=== PATIENT | female | born 1940 | race Hispanic/Latino ===

== ENCOUNTER → 2018-04-30 | Outpatient (CLI) | payer OTHER ==
[~2018-04-30] MED LIST: ALBU6.7H PUFF; AMIO200T5 PO; BENZ-51 PO; ERGO400C PO; LEVO100 PO; Losartan Potassium PO; METO50TA18 PO; RIVA20TA PO; Simethicone PO
== END | disposition home or self-care (01) ==
LOC: SHCH 15:25
PROVIDERS: ATTEND Internal Medicine Cardiovascular Disease
DX: I48.0 Paroxysmal atrial fibrillation (principal)
CPT/HCPCS: 93306

== ENCOUNTER 2020-01-20 16:56 | Inpatient (IN) | payer OTHER ==
[~2020-01-20] VITALS: Ht 165.1 cm; Wt 79.0 kg
[~2020-01-20 16:56] MED LIST changes: -ALBU6.7H PUFF; +ALBU6.7H9 PUFF
[2020-01-20] MEDS ORDERED: SODIUM CHLORIDE 0.9% 1000ML 1,000 ML IV ONE (17:05)
[2020-01-20 17:10] LABS: BASOPHILS % (AUTO) 0.2 % (0.0-5.0); HEMATOCRIT 40.1 % (36-48); LYMPHOCYTES % (AUTO) 3.3 % (21.0-51.0); MEAN CORPUSCULAR HEMOGLOBIN 31.9 pg (27.0-33.0); MEAN CORPUSCULAR HGB CONC 34.2 g/dL (32.0-36.0); MEAN CORPUSCULAR VOLUME 93.3 fL (79-99); MONOCYTES % (AUTO) 8.9 % (3.0-13.0); NEUTROPHILS % (AUTO) 87.1 % (40.0-77.0); PLATELET COUNT (AUTO) 150 K/uL (130-400); RED CELL DISTRIBUTION WIDTH 13.4 % (11.0-15.5)
[2020-01-20 17:22] LABS: CREATININE 1.7 mg/dL (0.5-1.5); POTASSIUM 3.9 mmol/L (3.5-5.1)
[2020-01-20] MEDS ORDERED: ONDANSETRON HCL 4 MG/2 ML VIAL ONE (18:41)
[2020-01-20] MEDS ORDERED: ONDANSETRON HCL 4 MG/2 ML VIAL IV PRN (19:15)
[2020-01-20] MEDS ORDERED: ACETAMINOPHEN 325 MG TAB PO PRN (19:15)
[2020-01-20] MEDS ORDERED: ALBUTEROL SULFATE 0.083% 2.5 MG/3 ML INH IH PRN (19:45)
[2020-01-20] MEDS ORDERED: ACETAMINOPHEN 325 MG TAB ONE (20:03)
[2020-01-20 20:30] LABS: APPEARANCE,URINE Cloudy (CLEAR); BILIRUBIN,URINE Negative (NEGATIVE); COLOR,URINE Yellow (YELLOW); GLUCOSE, URINE (UA) Negative (NEGATIVE); KETONES,URINE Negative (NEGATIVE); LEUKOCYTE ESTERASE ,URINE Moderate (NEGATIVE); NITRATE,URINE Negative (NEGATIVE); OCCULT BLOOD,URINE Large (NEGATIVE); PROTEIN,URINE POS 1+ mg/dL (NEGATIVE)
[2020-01-20 20:42] LABS: AMPHET/METH SCREEN,URINE NEGATIVE (NEGATIVE); BARBITURATE SCREEN, URINE NEGATIVE (NEGATIVE); BENZODIAZEPINES SCREEN,URINE NEGATIVE (NEGATIVE); CANNABINOID SCREEN,URINE NEGATIVE (NEGATIVE); COCAINE SCREEN,URINE NEGATIVE (NEGATIVE); OPIATE SCREEN,URINE NEGATIVE (NEGATIVE); PHENCYCLIDINE SCREEN,URINE NEGATIVE (NEGATIVE)
[2020-01-20] MEDS ORDERED: FAMOTIDINE 20MG TAB 20 MG TAB ONE (20:52)
[2020-01-20] MEDS ORDERED: AMIODARONE HCL 200 MG TABLET PO ONE (20:52)
[2020-01-20] MEDS: AMIODARONE HCL 200 MG TABLET PO SCH (21:00)
[2020-01-20] MEDS: FAMOTIDINE 20MG TAB 20 MG TAB PO SCH (21:00)
[2020-01-20 21:09] LABS: WBC,URINE 26-50 /HPF (0-1)
[2020-01-20 21:10] LABS: BACTERIA,URINE Moderate /HPF (None Seen)
[2020-01-20 23:45] VITALS: BP 138/71
[2020-01-21] VITALS (7 sets, daily range): BP systolic 98–168; BP diastolic 59–75
[2020-01-21 05:09] LABS: HEMATOCRIT 39.2 % (36-48); MEAN CORPUSCULAR HGB CONC 33.9 g/dL (32.0-36.0); MEAN CORPUSCULAR VOLUME 94.2 fL (79-99); RED BLOOD CELL COUNT(AUTO) 4.16 MIL/uL (4.00-5.50); RED CELL DISTRIBUTION WIDTH 13.4 % (11.0-15.5); WHITE BLOOD COUNT (AUTO) 11.6 K/uL (4.8-10.8)
[2020-01-21 05:27] LABS: CREATININE 1.6 mg/dL (0.5-1.5); POTASSIUM 4.1 mmol/L (3.5-5.1)
[2020-01-21] MEDS ORDERED: CLON0.1T PO (06:04)
[2020-01-21] MEDS ORDERED: OMEP40CA13 PO (06:04)
[2020-01-21] MEDS ORDERED: ALBU90AE2 IH (06:04)
[2020-01-21] MEDS ORDERED: AMLO2.5T4 PO (06:04)
[2020-01-21] MEDS ORDERED: LOSA50TA64 PO (06:04)
[2020-01-21] MEDS ORDERED: CARV25TA PO (06:04)
[2020-01-21] MEDS: LEVOTHYROXINE 100 MCG TABLET PO SCH ×2 (07:23→07:42)
[2020-01-21] MEDS ORDERED: METOPROLOL TARTRATE 50 MG TAB PO SCH (09:00)
[2020-01-21] MEDS: FAMOTIDINE 20MG TAB 20 MG TAB PO SCH (09:18)
[2020-01-21] MEDS: AMIODARONE HCL 200 MG TABLET PO SCH ×2 (09:18→20:11)
[2020-01-21] MEDS: RIVAROXABAN 20 MG TABLET PO SCH (09:18)
[2020-01-21] MEDS: LOSARTAN 50 MG TABLET PO SCH (09:18)
[2020-01-21] MEDS ORDERED: RENAL DOSE IV SCH (12:30)
[2020-01-21] MEDS ORDERED: PHARMACY COMMUNICATION MISC SCH (13:00)
[2020-01-21] MEDS: ZOSYN 3.375GM+NS 50ML 50 ML IV SCH (13:00)
[2020-01-21] MEDS ORDERED: ZOSYN 3.375GM+NS 50ML 50 ML IV SCH (13:00)
--- NOTE | 2020-01-21 16:29 | NUR ---
DC PLAN VISITED WITH PATIENT. PATIENT LIVES ALONE. INDEPENDENT ABLE TO PERFORM ADL'S. PATIENT HAS NO SERVICES. PATIENT HAS WALKER WITH WHEELS. WONDERING ABOUT PROVIDER SERVICES WILL GIVE INFO TO MIKA CARBALLO. Addendum: 01/21/20 at 1632 by SABRINA MIRANDA RN CM Amended: Links added.
[2020-01-21] MEDS: ACETAMINOPHEN 325 MG TAB PO PRN ×2 (18:13→20:12)
[2020-01-21] MEDS: BENZONATATE 100 MG CAPSULE PO PRN (20:11)
[2020-01-22 00:24] VITALS: BP 132/70
[2020-01-22] MEDS: ZOSYN 3.375GM+NS 50ML 50 ML IV SCH ×2 (00:39→13:11)
[2020-01-22 04:46] VITALS: BP 161/82
--- NOTE | 2020-01-22 05:42 | NUR ---
received report from am nurse, assumed care, shift assessment done, timed medication given see emar, pain medication given pre and post pain assessment done, 24 cc done, safety maintained, bed in lowest position, callbell in reached, will continue to monitor.
[2020-01-22] MEDS: FAMOTIDINE 20MG TAB 20 MG TAB PO SCH (08:20)
[2020-01-22] MEDS: RIVAROXABAN 20 MG TABLET PO SCH (08:20)
[2020-01-22] MEDS: LOSARTAN 50 MG TABLET PO SCH (08:20)
[2020-01-22] MEDS: LEVOTHYROXINE 100 MCG TABLET PO SCH (08:20)
[2020-01-22] MEDS: AMIODARONE HCL 200 MG TABLET PO SCH ×2 (08:21→20:15)
[2020-01-22 08:30] VITALS: BP 154/77
[2020-01-22 12:03] VITALS: BP 159/91
--- NOTE | 2020-01-22 14:19 | NUR ---
DC PLAN PER DR. CHASE SAID PATIENT UNSAFE TO GO HOME. PATIENT NEED MEDICATION ADJ, UNSTEADY GAIT WILL NEED PT. SPOKE TO FAMILY SEVERAL TIMES WELL PATIENT. THERE WAS SEVERAL CHANGES ON HOME VS FACILITY VS IRU. FINAL CONSENT GIVEN FOR DENISSE SALCIDO. INFO SENT PENDING INSURANCE AUTH. Addendum: 01/23/20 at 1423 by SABRINA MIRANDA RN CM Amended: Links added.
[2020-01-22] MEDS ORDERED: AMLODIPINE BESYLATE 5 MG TAB ONE (15:13)
[2020-01-22 17:41] VITALS: BP 150/79
--- NOTE | 2020-01-22 18:20 | NUR ---
Report given to Jersey HASSAN. Patient transferred to 4th floor VIA bed. VSS,NAD denies any pain
--- NOTE | 2020-01-22 18:41 | NUR ---
ARRIVED BY BED IN GOOD CONDITION, IV S/L IN PLACE, TELE MONITOR IN PLACE, A/OX4 WITH NO CURRENT C/O PAIN OR RESP DIFFICULTY/DISTRESS.
[2020-01-22 19:49] VITALS: BP 150/76
[2020-01-23] VITALS: BP 161/79
[2020-01-23] MEDS: ZOSYN 3.375GM+NS 50ML 50 ML IV SCH ×2 (00:40→13:36)
[2020-01-23 03:54] VITALS: BP 168/80
[2020-01-23 08:00] VITALS: BP 169/80
--- NOTE | 2020-01-23 09:00 | NUR ---
cm note call made to Cyndee wells and states no approval for snf yet, updated MD
[2020-01-23] MEDS: AMLODIPINE BESYLATE 5 MG TAB PO SCH (11:10)
[2020-01-23] MEDS: LOSARTAN 50 MG TABLET PO SCH (11:10)
[2020-01-23] MEDS: AMIODARONE HCL 200 MG TABLET PO SCH ×2 (11:10→22:53)
[2020-01-23] MEDS: RIVAROXABAN 20 MG TABLET PO SCH (11:11)
[2020-01-23] MEDS: FAMOTIDINE 20MG TAB 20 MG TAB PO SCH (11:11)
[2020-01-23 11:15] VITALS: BP 132/73
--- NOTE | 2020-01-23 13:08 | NUR ---
cm note call made to carly wells and states no approval for snf by insurance yet, still pending, call made to Brii BRYANT/SHEILA [phone] ext [phone] and spoke to rep , states they are reviewing the case for snf approval, but will make a determination and call me back with decision.
[2020-01-23] MEDS ORDERED: ACET1TAB25 PO (14:36)
--- NOTE | 2020-01-23 15:00 | NUR ---
cm note received call from nathan with [facility] pt is approved for snf at [facility], updated miguel primary nurse, and also notified dr tran, [facility] pending for cardiology to see and clear for dc.
[2020-01-23 15:59] VITALS: BP 144/74
[2020-01-23 20:00] VITALS: BP_SYST 130; BP_SYST 134; BP_SYST 83; BP_DIAS 45; BP_DIAS 70; BP_DIAS 75
[2020-01-23] MEDS: BENZONATATE 100 MG CAPSULE PO PRN (22:53)
[2020-01-23] MEDS ORDERED: SODIUM CHLORIDE 0.9% 1000ML 1,000 ML IV SCH (23:45)
[2020-01-24] VITALS: BP 149/76
[2020-01-24] MEDS: ZOSYN 3.375GM+NS 50ML 50 ML IV SCH ×2 (01:37→13:00)
[2020-01-24 04:00] VITALS: BP 168/79
[2020-01-24 05:08] LABS: BASOPHILS % (AUTO) 0.4 % (0.0-5.0); EOSINOPHILS % (AUTO) 0.9 % (0.0-8.0); HEMATOCRIT 37.3 % (36-48); LYMPHOCYTES % (AUTO) 10.7 % (21.0-51.0); MEAN CORPUSCULAR HEMOGLOBIN 31.5 pg (27.0-33.0); MEAN CORPUSCULAR HGB CONC 34.3 g/dL (32.0-36.0); MEAN CORPUSCULAR VOLUME 91.9 fL (79-99); MONOCYTES % (AUTO) 15.9 % (3.0-13.0); NEUTROPHILS % (AUTO) 71.1 % (40.0-77.0); PLATELET COUNT (AUTO) 135 K/uL (130-400); RED BLOOD CELL COUNT(AUTO) 4.06 MIL/uL (4.00-5.50); RED CELL DISTRIBUTION WIDTH 13.4 % (11.0-15.5)
[2020-01-24 05:28] LABS: CREATININE 1.4 mg/dL (0.5-1.5); MAGNESIUM 1.6 mg/dL (1.80-2.40); POTASSIUM 3.5 mmol/L (3.5-5.1)
[2020-01-24] MEDS: LEVOTHYROXINE 100 MCG TABLET PO SCH (06:18)
[2020-01-24 08:00] VITALS: BP 154/86
[2020-01-24] MEDS: RIVAROXABAN 20 MG TABLET PO SCH (09:52)
[2020-01-24] MEDS: FAMOTIDINE 20MG TAB 20 MG TAB PO SCH (09:52)
[2020-01-24] MEDS: AMLODIPINE BESYLATE 5 MG TAB PO SCH (09:52)
[2020-01-24] MEDS: AMIODARONE HCL 200 MG TABLET PO SCH (09:52)
[2020-01-24 12:08] VITALS: BP 162/83
--- NOTE | 2020-01-24 17:04 | NUR ---
Patient discharged to half-way facility via [facility] wheelchair/van transport. Report called in at [phone] to [phone] Ricco Lemon LVN where the pt would be going to the [address] [place] [address]. IV removed and pressure held for 4 mins; no bleeding noted. Tele-pack removed and returned to telemetry via PCP. No skin issues/wounds upon assessment. Pt able to move all extremities and advised to call for assistance when attempting to ambulate. Last bowel movement yesterday per patient. Bowel sounds active in all quadrants; flatus passed while assisting pt w/ bedpan. No signs of respiratory distress noted. All paperwork including new prescriptions,education, and visit summary included in packet sent w/ pt. This nurses name and extension provided for any additional info that may be needed. Addendum: 01/24/20 at 1805 by KAITLIN GALDAMEZ RN RN Ricco Lemon LVN informed via report that the patient had 2 blood pressure medications that were discontinued and was given the most recent blood pressure measurement.
== END 2020-01-24 17:15 | DRG 315 ==
LOC: EDH 16:56 → OBSVTOIN 19:04 → EDHIP 19:04 → 2DH 22:21 → 4DH 01-22 18:18
PROVIDERS: ADMIT Internal Medicine; ATTEND Internal Medicine
DX: I95.9 Hypotension, unspecified (principal); N39.0 Urinary tract infection, site not specified; N17.9 Acute kidney failure, unspecified; I48.20 Chronic atrial fibrillation, unspecified; R29.6 Repeated falls; K21.9 Gastro-esophageal reflux disease without esophagitis; J44.9 Chronic obstructive pulmonary disease, unspecified; E78.5 Hyperlipidemia, unspecified; I48.0 Paroxysmal atrial fibrillation; I11.9 Hypertensive heart disease without heart failure; Z20.828 Contact with and (suspected) exposure to other viral communicable diseases; Z91.81 History of falling; Z79.01 Long term (current) use of anticoagulants; Z98.42 Cataract extraction status, left eye; Z88.8 Allergy status to other drugs, medicaments and biological substances
CPT/HCPCS: 36415; 70450; 70551; 71045; 72125; 73521; 80048; 80061; 80305; 81001; 82948; 83735; 84145; 84484; 85025; 85027; 87077; 87088; 87186; 87426; 87804; 93005; 97039; G0378; J2405; J2543; J7030; U0003

== ENCOUNTER 2020-04-30 09:14 | Inpatient (IN) | payer OTHER ==
[~2020-04-30] VITALS: Ht 160 cm; Wt 70.0 kg
[~2020-04-30 09:14] MED LIST changes: -ALBU6.7H9 PUFF; -AMIO200T5 PO; -BENZ-51 PO; -ERGO400C PO; +FAMO20TA8 PO; -Losartan Potassium PO; -METO50TA18 PO; -Simethicone PO
[2020-04-30 10:05] LABS: BASOPHILS % (AUTO) 0.6 % (0.0-5.0); EOSINOPHILS % (AUTO) 1.2 % (0.0-8.0); HEMATOCRIT 41.7 % (36-48); LYMPHOCYTES % (AUTO) 16.2 % (21.0-51.0); MEAN CORPUSCULAR HEMOGLOBIN 32.6 pg (27.0-33.0); MEAN CORPUSCULAR HGB CONC 33.3 g/dL (32.0-36.0); MEAN CORPUSCULAR VOLUME 97.7 fL (79-99); MONOCYTES % (AUTO) 7.1 % (3.0-13.0); NEUTROPHILS % (AUTO) 74.5 % (40.0-77.0); PLATELET COUNT (AUTO) 198 K/uL (130-400); RED BLOOD CELL COUNT(AUTO) 4.27 MIL/uL (4.00-5.50); RED CELL DISTRIBUTION WIDTH 13.7 % (11.0-15.5); WHITE BLOOD COUNT (AUTO) 5.1 K/uL (4.8-10.8)
[2020-04-30 10:18] LABS: CREATININE 1.4 mg/dL (0.5-1.5); POTASSIUM 3.5 mmol/L (3.5-5.1)
[2020-04-30 10:23] LABS: ALBUMIN 2.8 g/dL (3.5-5.0); BILIRUBIN,TOTAL 0.4 mg/dL (0.2-1.0)
[2020-04-30 10:29] LABS: B-TYPE NATRIURETIC PEPTIDE 103 pg/mL (0-100)
[2020-04-30] MEDS ORDERED: SODIUM CHLORIDE 0.9% 500ML 500 ML IV ONE (10:46)
[2020-04-30 11:28] LABS: APPEARANCE,URINE SL CLOUDY (CLEAR); BILIRUBIN,URINE NEGATIVE (NEGATIVE); COLOR,URINE YELLOW (YELLOW); GLUCOSE, URINE (UA) NEGATIVE (NEGATIVE); KETONES,URINE 5 mg/dL (NEGATIVE); LEUKOCYTE ESTERASE ,URINE MODERATE (NEGATIVE); NITRATE,URINE POSITIVE (NEGATIVE); OCCULT BLOOD,URINE NEGATIVE (NEGATIVE); PH,URINE 8.5 (5.0-8.0); PROTEIN,URINE TRACE mg/dL (NEGATIVE)
[2020-04-30 11:53] LABS: BACTERIA,URINE Many /HPF (None Seen)
[2020-04-30 11:54] LABS: RBC,URINE 0-1 /HPF (0-1); TRIPLE PHOSPHATE CRYSTAL,UR Few /LPF (None Seen)
[2020-04-30] MEDS ORDERED: SODIUM CHLORIDE 0.9% 1000ML 1,000 ML IV ONE (15:25)
[2020-04-30 16:45] VITALS: BP 162/86
[2020-04-30 19:25] VITALS: BP 165/91
[2020-04-30] MEDS ORDERED: PHARMACY COMMUNICATION MISC SCH (21:30)
[2020-04-30] MEDS: PINDOLOL 5 MG TAB PO SCH (22:06)
[2020-04-30] MEDS: SODIUM CHLORIDE 0.9% 1000ML 1,000 ML IV SCH (22:30)
[2020-04-30 23:18] VITALS: BP 163/88
[2020-05-01] VITALS (10 sets, daily range): BP systolic 112–169; BP diastolic 71–104
[2020-05-01] MEDS: LEVOTHYROXINE 100 MCG TABLET PO SCH (06:45)
[2020-05-01] MEDS: PINDOLOL 5 MG TAB PO SCH ×2 (09:57→20:38)
[2020-05-01] MEDS: RIVAROXABAN 20 MG TABLET PO SCH (09:57)
[2020-05-01] MEDS: FAMOTIDINE 20MG TAB 20 MG TAB PO SCH (09:57)
[2020-05-01] MEDS: SODIUM CHLORIDE 0.9% 1000ML 1,000 ML IV SCH ×2 (09:59→16:55)
[2020-05-02 04:00] VITALS: BP 142/77
[2020-05-02 05:32] LABS: BASOPHILS % (AUTO) 0.5 % (0.0-5.0); EOSINOPHILS % (AUTO) 1.5 % (0.0-8.0); HEMATOCRIT 40.2 % (36-48); LYMPHOCYTES % (AUTO) 17.8 % (21.0-51.0); MEAN CORPUSCULAR HEMOGLOBIN 31.9 pg (27.0-33.0); MEAN CORPUSCULAR HGB CONC 33.3 g/dL (32.0-36.0); MEAN CORPUSCULAR VOLUME 95.7 fL (79-99); MONOCYTES % (AUTO) 8.6 % (3.0-13.0); NEUTROPHILS % (AUTO) 71.1 % (40.0-77.0); PLATELET COUNT (AUTO) 221 K/uL (130-400); RED CELL DISTRIBUTION WIDTH 13.3 % (11.0-15.5); WHITE BLOOD COUNT (AUTO) 5.8 K/uL (4.8-10.8)
[2020-05-02 05:42] LABS: CREATININE 1.2 mg/dL (0.5-1.5); POTASSIUM 3.5 mmol/L (3.5-5.1)
[2020-05-02] MEDS: LEVOTHYROXINE 100 MCG TABLET PO SCH (05:57)
[2020-05-02 07:50] VITALS: BP 138/76
[2020-05-02] MEDS: RIVAROXABAN 20 MG TABLET PO SCH (08:27)
[2020-05-02] MEDS: FAMOTIDINE 20MG TAB 20 MG TAB PO SCH (08:27)
[2020-05-02] MEDS: PINDOLOL 5 MG TAB PO SCH (09:00)
[2020-05-02 11:06] VITALS: BP 137/74
[2020-05-02 11:07] VITALS: BP_SYST 103; BP_SYST 116; BP_DIAS 60; BP_DIAS 73
[2020-05-02 15:49] VITALS: BP_SYST 122; BP_SYST 130; BP_SYST 132; BP_DIAS 71; BP_DIAS 73; BP_DIAS 75
[2020-05-02 20:47] VITALS: BP_SYST 132; BP_SYST 133; BP_DIAS 72; BP_DIAS 81
[2020-05-03] VITALS (9 sets, daily range): BP systolic 89–157; BP diastolic 60–97
[2020-05-03] MEDS: PINDOLOL 5 MG TAB PO SCH ×3 (03:01→20:02)
[2020-05-03] MEDS: LEVOTHYROXINE 100 MCG TABLET PO SCH (06:44)
[2020-05-03] MEDS: RIVAROXABAN 20 MG TABLET PO SCH (10:22)
[2020-05-03] MEDS: MEROPENEM 1 GM VIAL IVP SCH ×2 (10:22→18:21)
[2020-05-03] MEDS: FAMOTIDINE 20MG TAB 20 MG TAB PO SCH (10:22)
[2020-05-03 10:25] LABS: BASOPHILS % (AUTO) 0.8 % (0.0-5.0); EOSINOPHILS % (AUTO) 1.2 % (0.0-8.0); HEMATOCRIT 36.3 % (36-48); LYMPHOCYTES % (AUTO) 17.4 % (21.0-51.0); MEAN CORPUSCULAR HGB CONC 34.2 g/dL (32.0-36.0); MEAN CORPUSCULAR VOLUME 96.5 fL (79-99); MONOCYTES % (AUTO) 8.9 % (3.0-13.0); NEUTROPHILS % (AUTO) 71.1 % (40.0-77.0); PLATELET COUNT (AUTO) 183 K/uL (130-400); RED BLOOD CELL COUNT(AUTO) 3.76 MIL/uL (4.00-5.50); RED CELL DISTRIBUTION WIDTH 13.7 % (11.0-15.5); WHITE BLOOD COUNT (AUTO) 5.1 K/uL (4.8-10.8)
[2020-05-03 10:34] LABS: CREATININE 1.5 mg/dL (0.5-1.5); POTASSIUM 3.8 mmol/L (3.5-5.1)
[2020-05-04] MEDS: MEROPENEM 1 GM VIAL IVP SCH ×3 (02:33→17:15)
[2020-05-04 05:00] VITALS: BP_SYST 100; BP_SYST 129; BP_DIAS 68; BP_DIAS 71
[2020-05-04 05:01] VITALS: BP 144/63
[2020-05-04] MEDS: LEVOTHYROXINE 100 MCG TABLET PO SCH (05:48)
[2020-05-04 07:47] VITALS: BP 119/75
[2020-05-04] MEDS: FAMOTIDINE 20MG TAB 20 MG TAB PO SCH (08:08)
[2020-05-04] MEDS: PINDOLOL 5 MG TAB PO SCH ×2 (08:08→21:41)
[2020-05-04] MEDS: RIVAROXABAN 20 MG TABLET PO SCH (08:08)
[2020-05-04 12:00] VITALS: BP 111/59
[2020-05-04 16:00] VITALS: BP 149/82
[2020-05-04 20:51] VITALS: BP 146/79
[2020-05-05] VITALS (7 sets, daily range): BP systolic 115–157; BP diastolic 54–94
[2020-05-05] MEDS: MEROPENEM 1 GM VIAL IVP SCH ×3 (03:08→17:21)
[2020-05-05] MEDS: LEVOTHYROXINE 100 MCG TABLET PO SCH (06:15)
[2020-05-05] MEDS: RIVAROXABAN 20 MG TABLET PO SCH (09:01)
[2020-05-05] MEDS: PINDOLOL 5 MG TAB PO SCH ×2 (09:01→20:41)
[2020-05-05] MEDS: FAMOTIDINE 20MG TAB 20 MG TAB PO SCH (09:01)
[2020-05-05] MEDS ORDERED: ACETAMINOPHEN 325 MG TAB PO PRN (11:30)
[2020-05-05] MEDS ORDERED: ONDANSETRON HCL 4 MG/2 ML VIAL IVP PRN (11:30)
[2020-05-06] MEDS: MEROPENEM 1 GM VIAL IVP SCH ×3 (01:17→17:33)
[2020-05-06 04:10] VITALS: BP 131/63
[2020-05-06 04:45] LABS: BASOPHILS % (AUTO) 0.7 % (0.0-5.0); EOSINOPHILS % (AUTO) 3.5 % (0.0-8.0); HEMATOCRIT 36.1 % (36-48); LYMPHOCYTES % (AUTO) 22.9 % (21.0-51.0); MEAN CORPUSCULAR HEMOGLOBIN 32.8 pg (27.0-33.0); MEAN CORPUSCULAR HGB CONC 33.5 g/dL (32.0-36.0); MEAN CORPUSCULAR VOLUME 97.8 fL (79-99); MONOCYTES % (AUTO) 13.1 % (3.0-13.0); NEUTROPHILS % (AUTO) 59.1 % (40.0-77.0); PLATELET COUNT (AUTO) 171 K/uL (130-400); RED BLOOD CELL COUNT(AUTO) 3.69 MIL/uL (4.00-5.50); RED CELL DISTRIBUTION WIDTH 13.4 % (11.0-15.5); WHITE BLOOD COUNT (AUTO) 5.4 K/uL (4.8-10.8)
[2020-05-06 05:05] LABS: ALBUMIN 2.3 g/dL (3.5-5.0); BILIRUBIN,TOTAL 0.3 mg/dL (0.2-1.0); CREATININE 1.6 mg/dL (0.5-1.5); POTASSIUM 3.6 mmol/L (3.5-5.1); TOTAL PROTEIN, SERUM 5.3 g/dL (6.0-8.3)
[2020-05-06] MEDS: LEVOTHYROXINE 100 MCG TABLET PO SCH (05:44)
[2020-05-06 07:00] VITALS: BP 119/70
[2020-05-06] MEDS: FAMOTIDINE 20MG TAB 20 MG TAB PO SCH (08:13)
[2020-05-06] MEDS: RIVAROXABAN 20 MG TABLET PO SCH (08:13)
[2020-05-06] MEDS: PINDOLOL 5 MG TAB PO SCH ×2 (08:14→19:49)
[2020-05-06 11:00] VITALS: BP 140/67
[2020-05-06 16:00] VITALS: BP 124/81
[2020-05-06 21:26] VITALS: BP 149/83
[2020-05-07 00:45] VITALS: BP 131/72
[2020-05-07] MEDS: MEROPENEM 1 GM VIAL IVP SCH ×2 (03:02→11:34)
[2020-05-07 04:19] VITALS: BP 133/74
[2020-05-07] MEDS: LEVOTHYROXINE 100 MCG TABLET PO SCH (06:43)
[2020-05-07 07:00] LABS: BASOPHILS % (AUTO) 0.5 % (0.0-5.0); EOSINOPHILS % (AUTO) 4.4 % (0.0-8.0); LYMPHOCYTES % (AUTO) 19.5 % (21.0-51.0); MEAN CORPUSCULAR HEMOGLOBIN 32.2 pg (27.0-33.0); MEAN CORPUSCULAR HGB CONC 33.2 g/dL (32.0-36.0); MEAN CORPUSCULAR VOLUME 96.9 fL (79-99); MONOCYTES % (AUTO) 11.6 % (3.0-13.0); NEUTROPHILS % (AUTO) 63.2 % (40.0-77.0); PLATELET COUNT (AUTO) 196 K/uL (130-400); RED BLOOD CELL COUNT(AUTO) 3.82 MIL/uL (4.00-5.50); RED CELL DISTRIBUTION WIDTH 13.2 % (11.0-15.5); WHITE BLOOD COUNT (AUTO) 6.6 K/uL (4.8-10.8)
[2020-05-07 07:29] LABS: ALBUMIN 2.3 g/dL (3.5-5.0); BILIRUBIN,TOTAL 0.3 mg/dL (0.2-1.0); CREATININE 1.4 mg/dL (0.5-1.5); POTASSIUM 4.1 mmol/L (3.5-5.1); TOTAL PROTEIN, SERUM 5.3 g/dL (6.0-8.3)
[2020-05-07 08:09] VITALS: BP 133/75
[2020-05-07] MEDS: PINDOLOL 5 MG TAB PO SCH (11:34)
[2020-05-07] MEDS: RIVAROXABAN 20 MG TABLET PO SCH (11:34)
[2020-05-07] MEDS: FAMOTIDINE 20MG TAB 20 MG TAB PO SCH (11:34)
[2020-05-07 12:18] VITALS: BP 130/83
== END 2020-05-07 17:45 | DRG 312 ==
LOC: EDH 09:14 → EDHIP 14:09 → UNDOADMOB 14:09 → OBSVTOIN 14:09 → INTOOBSV 14:09 → EDHIP 16:32 → 4DH 16:32
PROVIDERS: ADMIT Internal Medicine; ATTEND Internal Medicine
DX: I95.1 Orthostatic hypotension (principal); I50.43 Acute on chronic combined systolic (congestive) and diastolic (congestive) heart failure; N39.0 Urinary tract infection, site not specified; I48.0 Paroxysmal atrial fibrillation; G47.33 Obstructive sleep apnea (adult) (pediatric); K21.9 Gastro-esophageal reflux disease without esophagitis; E03.9 Hypothyroidism, unspecified; I11.0 Hypertensive heart disease with heart failure; I44.0 Atrioventricular block, first degree; B96.1 Klebsiella pneumoniae [K. pneumoniae] as the cause of diseases classified elsewhere; B96.4 Proteus (mirabilis) (morganii) as the cause of diseases classified elsewhere; E78.5 Hyperlipidemia, unspecified; Z79.01 Long term (current) use of anticoagulants; Z91.81 History of falling; Z91.19 Patient's noncompliance with other medical treatment and regimen; Z86.73 Personal history of transient ischemic attack (TIA), and cerebral infarction without residual deficits; Z88.8 Allergy status to other drugs, medicaments and biological substances; Z83.3 Family history of diabetes mellitus; Z80.9 Family history of malignant neoplasm, unspecified; Z82.49 Family history of ischemic heart disease and other diseases of the circulatory system
CPT/HCPCS: 36415; 70450; 71045; 80048; 80053; 81001; 82550; 82948; 83880; 84145; 84443; 84484; 85025; 87077; 87088; 87186; 93005; 93306; 93356; 93880; 97039; G0378; J2185; J2405; J7030; J7040

== ENCOUNTER 2020-07-31 19:13 | Inpatient (IN) | payer MEDICARE, OTHER ==
[~2020-07-31] VITALS: Ht 162.6 cm; Wt 69.8 kg
[2020-07-31] MEDS ORDERED: ZOSYN 3.375GM+NS 50ML 50 ML IV ONE (19:55)
[2020-07-31] MEDS ORDERED: ACETAMINOPHEN 500 MG TABLET ONE (19:55)
[2020-07-31] MEDS ORDERED: 0.9%NACL 1000ML 1,000 ML IV ONE (19:56)
[2020-07-31 20:16] LABS: APPEARANCE,URINE Clear (CLEAR); BILIRUBIN,URINE Negative (NEGATIVE); COLOR,URINE Yellow (YELLOW); GLUCOSE, URINE (UA) Negative (NEGATIVE); KETONES,URINE Negative (NEGATIVE); LEUKOCYTE ESTERASE ,URINE Large (NEGATIVE); NITRATE,URINE Negative (NEGATIVE); OCCULT BLOOD,URINE Nonhemolyzed Trace (NEGATIVE); PROTEIN,URINE Trace mg/dL (NEGATIVE)
[2020-07-31 20:19] LABS: BASOPHILS % (AUTO) 0.2 % (0.0-5.0); EOSINOPHILS % (AUTO) 0.2 % (0.0-8.0); HEMATOCRIT 36.2 % (36-48); LYMPHOCYTES % (AUTO) 3.2 % (21.0-51.0); MEAN CORPUSCULAR HEMOGLOBIN 32.6 pg (27.0-33.0); MEAN CORPUSCULAR HGB CONC 35.1 g/dL (32.0-36.0); MEAN CORPUSCULAR VOLUME 92.8 fL (79-99); MONOCYTES % (AUTO) 8.5 % (3.0-13.0); NEUTROPHILS % (AUTO) 87.6 % (40.0-77.0); PLATELET COUNT (AUTO) 180 K/uL (130-400); RED CELL DISTRIBUTION WIDTH 13.5 % (11.0-15.5); WHITE BLOOD COUNT (AUTO) 11.6 K/uL (4.8-10.8)
[2020-07-31 20:31] LABS: CARBON DIOXIDE 26 mmol/L (21-32); CHLORIDE 102 mmol/L (101-111); CREATININE 1.1 mg/dL (0.5-1.5); GLOMERULAR FILTR. RATE CALC 51 mL/min (>60); GLUCOSE,RANDOM 125 mg/dL (70-105); POTASSIUM 4.3 mmol/L (3.5-5.1); SODIUM SERUM 137 mmol/L (136-145); UREA NITROGEN, BLOOD 24 mg/dL (7-18)
[2020-07-31 20:35] LABS: INR 1.51 (0.85-1.15); PROTHROMBIN TIME 15.9 SEC (9.6-11.6)
[2020-07-31 20:37] LABS: PARTIAL THROMBOPLASTIN TIME 41.6 SEC (26.3-35.5)
[2020-07-31 20:40] LABS: BACTERIA,URINE Few /HPF (None Seen); MUCUS,URINE Rare LPF (None Seen); SQUAMOUS EPITHELIAL CELL,UR Rare /HPF (0-2)
[2020-07-31 20:42] LABS: ALANINE AMINOTRANSFERASE 26 U/L (12-78); ALBUMIN 2.8 g/dL (3.5-5.0); ASPARTATE AMINOTRANSFERASE 33 U/L (10-37); BILIRUBIN,TOTAL 0.6 mg/dL (0.2-1.0); CREATINE KINASE, TOTAL 42 U/L (21-232); MYOGLOBIN 53 ng/mL (10-92); TOTAL PROTEIN, SERUM 6.3 g/dL (6.0-8.3); TROPONIN I < 0.04 ng/mL (0.00-0.06)
[2020-07-31 20:53] LABS: B-TYPE NATRIURETIC PEPTIDE 285 pg/mL (0-100)
[2020-07-31] MEDS: LACTATED RINGERS 1000ML 1,000 ML IV SCH (22:00)
[2020-07-31] MEDS: CEFTRIAXONE 1G VIAL IVP SCH (22:00)
[2020-07-31] MEDS ORDERED: LACTULOSE 20 GM/30 ML UDCUP PO PRN (22:00)
[2020-07-31] MEDS ORDERED: ONDANSETRON 4MG INJ IV PRN (22:00)
[2020-07-31] MEDS ORDERED: ALBUTEROL 0.083% 2.5 MG/3 ML INH IH PRN (22:00)
[2020-07-31] MEDS ORDERED: DiphenhydrAMINE HCL 50 MG/ML VIAL IV PRN (22:00)
[2020-07-31] MEDS ORDERED: DOXYCYCLINE 100MG+NS 250ML IV SCH (22:00)
[2020-07-31] MEDS ORDERED: NITROGLYCERIN 0.4 MG SL TAB SL PRN (22:00)
[2020-07-31] MEDS ORDERED: ACETAMINOPHEN 325 MG TAB PO PRN ×2 (22:00)
[2020-07-31] MEDS ORDERED: GUAIFENESIN-DM 200/20 MG 10 ML PO PRN (22:00)
[2020-07-31] MEDS ORDERED: MAG/ALUM/SIMETH 30 ML UDCUP PO PRN (22:00)
[2020-07-31] MEDS ORDERED: DIPHENHYDRAMINE HCL 25 MG CAPSULE PO PRN (22:00)
[2020-07-31] MEDS: CARVEDILOL 3.125 MG TABLET PO SCH (23:00)
[2020-08-01] MEDS ORDERED: DOXYCYCLINE 100MG+NS 250ML 250 ML IV ONE (00:02)
[2020-08-01] MEDS ORDERED: LACTATED RINGERS 1000ML 1,000 ML IV ONE (00:03)
[2020-08-01] MEDS ORDERED: CARVEDILOL 3.125 MG TABLET PO ONE (00:03)
[2020-08-01] MEDS ORDERED: CEFTRIAXONE 1G VIAL ONE (00:03)
[2020-08-01 01:43] VITALS: BP 167/79
[2020-08-01 04:00] VITALS: BP 140/72
[2020-08-01 06:01] LABS: BASOPHILS % (AUTO) 0.3 % (0.0-5.0); EOSINOPHILS % (AUTO) 0.5 % (0.0-8.0); HEMATOCRIT 34.9 % (36-48); LYMPHOCYTES % (AUTO) 6.8 % (21.0-51.0); MEAN CORPUSCULAR HEMOGLOBIN 31.5 pg (27.0-33.0); MEAN CORPUSCULAR HGB CONC 33.5 g/dL (32.0-36.0); MEAN CORPUSCULAR VOLUME 94.1 fL (79-99); MONOCYTES % (AUTO) 9.2 % (3.0-13.0); NEUTROPHILS % (AUTO) 82.7 % (40.0-77.0); PLATELET COUNT (AUTO) 152 K/uL (130-400); RED BLOOD CELL COUNT(AUTO) 3.71 MIL/uL (4.00-5.50); RED CELL DISTRIBUTION WIDTH 13.4 % (11.0-15.5)
[2020-08-01 06:28] LABS: ALBUMIN 2.4 g/dL (3.5-5.0); BILIRUBIN,TOTAL 0.4 mg/dL (0.2-1.0); CREATININE 1.2 mg/dL (0.5-1.5); CRP QUANTITATIVE 125.4 mg/L (0.00-9.0); POTASSIUM 3.5 mmol/L (3.5-5.1); THYROID STIMULATING HORMONE 0.15 uIU/mL (0.36-3.74); TOTAL PROTEIN, SERUM 5.5 g/dL (6.0-8.3)
[2020-08-01 08:11] VITALS: BP 164/79
[2020-08-01] MEDS: LEVOTHYROXINE 100 MCG TABLET PO SCH (09:13)
[2020-08-01] MEDS: FAMOTIDINE 20MG VIAL IV SCH ×2 (09:13→20:30)
[2020-08-01] MEDS: RIVAROXABAN 20 MG TABLET PO SCH (09:14)
[2020-08-01] MEDS: CARVEDILOL 3.125 MG TABLET PO SCH ×2 (09:14→20:31)
[2020-08-01] MEDS: AMIODARONE 200 MG TABLET PO SCH ×2 (09:14→20:31)
[2020-08-01] MEDS: AMLODIPINE 5 MG TAB PO SCH (09:14)
[2020-08-01] MEDS: CEFTRIAXONE 1G VIAL IVP SCH ×2 (10:40→21:38)
[2020-08-01] MEDS: DOXYCYCLINE 100MG+NS 250ML 250 ML IV SCH ×2 (11:47→21:38)
[2020-08-01 12:00] VITALS: BP 134/68
[2020-08-01 16:10] VITALS: BP 151/74
[2020-08-01 20:00] VITALS: BP 172/83
[2020-08-02] VITALS (7 sets, daily range): BP systolic 134–179; BP diastolic 43–86
[2020-08-02 05:38] LABS: BASOPHILS % (AUTO) 0.6 % (0.0-5.0); EOSINOPHILS % (AUTO) 1.4 % (0.0-8.0); HEMATOCRIT 31.9 % (36-48); LYMPHOCYTES % (AUTO) 13.6 % (21.0-51.0); MEAN CORPUSCULAR HEMOGLOBIN 31.6 pg (27.0-33.0); MEAN CORPUSCULAR HGB CONC 34.2 g/dL (32.0-36.0); MEAN CORPUSCULAR VOLUME 92.5 fL (79-99); MONOCYTES % (AUTO) 12.7 % (3.0-13.0); PLATELET COUNT (AUTO) 152 K/uL (130-400); RED BLOOD CELL COUNT(AUTO) 3.45 MIL/uL (4.00-5.50); RED CELL DISTRIBUTION WIDTH 13.2 % (11.0-15.5); WHITE BLOOD COUNT (AUTO) 7.2 K/uL (4.8-10.8)
[2020-08-02 06:14] LABS: ALBUMIN 2.3 g/dL (3.5-5.0); BILIRUBIN,TOTAL 0.4 mg/dL (0.2-1.0); POTASSIUM 3.6 mmol/L (3.5-5.1); TOTAL PROTEIN, SERUM 5.5 g/dL (6.0-8.3)
[2020-08-02] MEDS: [UNRECOGNIZED DRUG - REMARK] MISC SCH (08:00)
[2020-08-02] MEDS: LEVOTHYROXINE 100 MCG TABLET PO SCH (08:30)
[2020-08-02] MEDS: FAMOTIDINE 20MG VIAL IV SCH ×2 (08:31→21:22)
[2020-08-02] MEDS: RIVAROXABAN 20 MG TABLET PO SCH (08:31)
[2020-08-02] MEDS: CARVEDILOL 3.125 MG TABLET PO SCH ×2 (08:32→21:22)
[2020-08-02] MEDS: AMLODIPINE 5 MG TAB PO SCH (08:32)
[2020-08-02] MEDS: AMIODARONE 200 MG TABLET PO SCH ×2 (08:33→21:22)
[2020-08-02] MEDS: LACTATED RINGERS 1000ML 1,000 ML IV SCH (08:41)
[2020-08-02] MEDS: DOXYCYCLINE 100MG+NS 250ML 250 ML IV SCH ×2 (10:08→21:22)
[2020-08-02] MEDS: CEFTRIAXONE 1G VIAL IVP SCH ×2 (10:08→21:21)
[2020-08-02] MEDS: LOSARTAN 50 MG TABLET PO SCH (13:36)
[2020-08-02 21:56] LABS: BASOPHILS % (AUTO) 0.5 % (0.0-5.0); EOSINOPHILS % (AUTO) 2.2 % (0.0-8.0); HEMATOCRIT 34.2 % (36-48); LYMPHOCYTES % (AUTO) 17.7 % (21.0-51.0); MEAN CORPUSCULAR HEMOGLOBIN 30.9 pg (27.0-33.0); MEAN CORPUSCULAR VOLUME 93.4 fL (79-99); MONOCYTES % (AUTO) 12.7 % (3.0-13.0); NEUTROPHILS % (AUTO) 66.2 % (40.0-77.0); PLATELET COUNT (AUTO) 151 K/uL (130-400); RED BLOOD CELL COUNT(AUTO) 3.66 MIL/uL (4.00-5.50); RED CELL DISTRIBUTION WIDTH 13.1 % (11.0-15.5)
[2020-08-03] VITALS (7 sets, daily range): BP systolic 118–184; BP diastolic 57–92
[2020-08-03] MEDS: [UNRECOGNIZED DRUG - REMARK] MISC SCH (03:26)
[2020-08-03 05:37] LABS: BASOPHILS % (AUTO) 0.5 % (0.0-5.0); EOSINOPHILS % (AUTO) 2.3 % (0.0-8.0); HEMATOCRIT 33.2 % (36-48); LYMPHOCYTES % (AUTO) 15.9 % (21.0-51.0); MEAN CORPUSCULAR HEMOGLOBIN 31.8 pg (27.0-33.0); MEAN CORPUSCULAR VOLUME 93.5 fL (79-99); MONOCYTES % (AUTO) 12.2 % (3.0-13.0); NEUTROPHILS % (AUTO) 68.8 % (40.0-77.0); PLATELET COUNT (AUTO) 170 K/uL (130-400); RED BLOOD CELL COUNT(AUTO) 3.55 MIL/uL (4.00-5.50); RED CELL DISTRIBUTION WIDTH 13.2 % (11.0-15.5)
[2020-08-03 05:57] LABS: ALBUMIN 2.2 g/dL (3.5-5.0); BILIRUBIN,TOTAL 0.4 mg/dL (0.2-1.0); POTASSIUM 3.6 mmol/L (3.5-5.1); TOTAL PROTEIN, SERUM 5.4 g/dL (6.0-8.3)
[2020-08-03] MEDS: LOSARTAN 50 MG TABLET PO SCH (08:19)
[2020-08-03] MEDS: LEVOTHYROXINE 100 MCG TABLET PO SCH (08:19)
[2020-08-03] MEDS: FAMOTIDINE 20MG VIAL IV SCH ×2 (08:19→20:47)
[2020-08-03] MEDS: AMLODIPINE 5 MG TAB PO SCH (08:19)
[2020-08-03] MEDS: AMIODARONE 200 MG TABLET PO SCH ×2 (08:20→20:47)
[2020-08-03] MEDS: RIVAROXABAN 20 MG TABLET PO SCH (08:25)
[2020-08-03] MEDS: CARVEDILOL 3.125 MG TABLET PO SCH ×2 (08:25→20:47)
[2020-08-03] MEDS: DOXYCYCLINE 100MG+NS 250ML 250 ML IV SCH ×2 (10:59→20:48)
[2020-08-03] MEDS: MEROPENEM 1 GM VIAL IVP SCH (12:01)
[2020-08-04] MEDS: MEROPENEM 1 GM VIAL IVP SCH ×3 (01:20→23:39)
[2020-08-04 03:45] VITALS: BP 164/71
[2020-08-04 05:23] LABS: BASOPHILS % (AUTO) 0.5 % (0.0-5.0); EOSINOPHILS % (AUTO) 2.5 % (0.0-8.0); HEMATOCRIT 33.4 % (36-48); LYMPHOCYTES % (AUTO) 17.5 % (21.0-51.0); MEAN CORPUSCULAR HEMOGLOBIN 31.4 pg (27.0-33.0); MEAN CORPUSCULAR HGB CONC 33.5 g/dL (32.0-36.0); MEAN CORPUSCULAR VOLUME 93.6 fL (79-99); MONOCYTES % (AUTO) 12.6 % (3.0-13.0); NEUTROPHILS % (AUTO) 66.1 % (40.0-77.0); PLATELET COUNT (AUTO) 193 K/uL (130-400); RED BLOOD CELL COUNT(AUTO) 3.57 MIL/uL (4.00-5.50); RED CELL DISTRIBUTION WIDTH 13.2 % (11.0-15.5); WHITE BLOOD COUNT (AUTO) 6.5 K/uL (4.8-10.8)
[2020-08-04 05:24] LABS: POTASSIUM 3.7 mmol/L (3.5-5.1)
[2020-08-04] MEDS: LEVOTHYROXINE 100 MCG TABLET PO SCH (06:11)
[2020-08-04 08:00] VITALS: BP 163/75
[2020-08-04] MEDS: CARVEDILOL 3.125 MG TABLET PO SCH ×2 (10:27→21:02)
[2020-08-04] MEDS: AMIODARONE 200 MG TABLET PO SCH ×2 (10:27→21:01)
[2020-08-04] MEDS: RIVAROXABAN 20 MG TABLET PO SCH (10:27)
[2020-08-04] MEDS: FAMOTIDINE 20MG VIAL IV SCH ×2 (10:28→21:02)
[2020-08-04] MEDS: AMLODIPINE 5 MG TAB PO SCH (10:28)
[2020-08-04] MEDS: DOXYCYCLINE 100MG+NS 250ML 250 ML IV SCH (10:28)
[2020-08-04] MEDS: LOSARTAN 50 MG TABLET PO SCH (10:28)
[2020-08-04 12:00] VITALS: BP 173/77
[2020-08-04 12:53] VITALS: BP 146/69
[2020-08-04 16:00] VITALS: BP 168/82
[2020-08-04 20:00] VITALS: BP 176/79
[2020-08-05] VITALS (7 sets, daily range): BP systolic 112–179; BP diastolic 63–87
[2020-08-05] MEDS: LEVOTHYROXINE 100 MCG TABLET PO SCH (06:42)
[2020-08-05] MEDS: AMLODIPINE 5 MG TAB PO SCH (10:02)
[2020-08-05] MEDS: AMIODARONE 200 MG TABLET PO SCH ×2 (10:02→21:32)
[2020-08-05] MEDS: RIVAROXABAN 20 MG TABLET PO SCH (10:02)
[2020-08-05] MEDS: CARVEDILOL 3.125 MG TABLET PO SCH ×2 (10:03→21:32)
[2020-08-05] MEDS: LOSARTAN 50 MG TABLET PO SCH (10:03)
[2020-08-05] MEDS: FAMOTIDINE 20MG VIAL IV SCH ×2 (10:04→21:32)
[2020-08-05] MEDS: MEROPENEM 1 GM VIAL IVP SCH ×2 (10:08→23:38)
[2020-08-05 10:32] LABS: INR 1.27 (0.85-1.15); PROTHROMBIN TIME 13.5 SEC (9.6-11.6)
[2020-08-05 10:34] LABS: PARTIAL THROMBOPLASTIN TIME 35.6 SEC (26.3-35.5)
[2020-08-06 03:00] VITALS: BP 136/66
[2020-08-06 05:15] LABS: BASOPHILS % (AUTO) 0.5 % (0.0-5.0); EOSINOPHILS % (AUTO) 1.5 % (0.0-8.0); HEMATOCRIT 36.3 % (36-48); LYMPHOCYTES % (AUTO) 20.9 % (21.0-51.0); MEAN CORPUSCULAR HEMOGLOBIN 30.9 pg (27.0-33.0); MEAN CORPUSCULAR HGB CONC 33.1 g/dL (32.0-36.0); MEAN CORPUSCULAR VOLUME 93.6 fL (79-99); MONOCYTES % (AUTO) 9.3 % (3.0-13.0); NEUTROPHILS % (AUTO) 67.4 % (40.0-77.0); PLATELET COUNT (AUTO) 237 K/uL (130-400); RED BLOOD CELL COUNT(AUTO) 3.88 MIL/uL (4.00-5.50); RED CELL DISTRIBUTION WIDTH 13.1 % (11.0-15.5); WHITE BLOOD COUNT (AUTO) 7.4 K/uL (4.8-10.8)
[2020-08-06 05:30] LABS: CREATININE 1.1 mg/dL (0.5-1.5); POTASSIUM 3.8 mmol/L (3.5-5.1)
[2020-08-06] MEDS: LEVOTHYROXINE 100 MCG TABLET PO SCH (07:58)
[2020-08-06 08:32] VITALS: BP 159/72
[2020-08-06] MEDS: AMIODARONE 200 MG TABLET PO SCH ×2 (11:03→22:38)
[2020-08-06] MEDS: AMLODIPINE 5 MG TAB PO SCH (11:03)
[2020-08-06] MEDS: LOSARTAN 50 MG TABLET PO SCH (11:03)
[2020-08-06] MEDS: CARVEDILOL 3.125 MG TABLET PO SCH ×2 (11:03→22:38)
[2020-08-06] MEDS: RIVAROXABAN 20 MG TABLET PO SCH (11:04)
[2020-08-06] MEDS: MEROPENEM 1 GM VIAL IVP SCH ×2 (11:04→22:38)
[2020-08-06] MEDS: FAMOTIDINE 20MG VIAL IV SCH ×2 (11:04→22:38)
[2020-08-06 12:04] VITALS: BP 165/75
[2020-08-06] MEDS ORDERED: ERTAPENEM SODIUM 1 GM in 0.9%NACL 50ML 50 ML IV ONE (14:30)
[2020-08-06] MEDS ORDERED: PHARMACY COMMUNICATION MISC SCH (15:00)
[2020-08-06 16:30] VITALS: BP 147/79
[2020-08-06 20:00] VITALS: BP 177/97
[2020-08-07] VITALS: BP 168/84
[2020-08-07 04:00] VITALS: BP 131/65
[2020-08-07 06:10] LABS: BASOPHILS % (AUTO) 0.5 % (0.0-5.0); EOSINOPHILS % (AUTO) 1.7 % (0.0-8.0); LYMPHOCYTES % (AUTO) 20.9 % (21.0-51.0); MEAN CORPUSCULAR HGB CONC 34.1 g/dL (32.0-36.0); MEAN CORPUSCULAR VOLUME 93.8 fL (79-99); MONOCYTES % (AUTO) 10.5 % (3.0-13.0); NEUTROPHILS % (AUTO) 65.6 % (40.0-77.0); PLATELET COUNT (AUTO) 191 K/uL (130-400); RED BLOOD CELL COUNT(AUTO) 3.41 MIL/uL (4.00-5.50); RED CELL DISTRIBUTION WIDTH 13.2 % (11.0-15.5); WHITE BLOOD COUNT (AUTO) 6.6 K/uL (4.8-10.8)
[2020-08-07 06:14] LABS: CREATININE 1.2 mg/dL (0.5-1.5); POTASSIUM 3.6 mmol/L (3.5-5.1)
[2020-08-07 07:48] VITALS: BP 151/71
[2020-08-07] MEDS: LEVOTHYROXINE 100 MCG TABLET PO SCH (08:32)
[2020-08-07] MEDS: AMIODARONE 200 MG TABLET PO SCH (08:50)
[2020-08-07] MEDS: AMLODIPINE 5 MG TAB PO SCH (08:50)
[2020-08-07] MEDS: CARVEDILOL 3.125 MG TABLET PO SCH (08:51)
[2020-08-07] MEDS: LOSARTAN 50 MG TABLET PO SCH (08:51)
[2020-08-07] MEDS: FAMOTIDINE 20MG VIAL IV SCH (08:52)
[2020-08-07] MEDS: RIVAROXABAN 20 MG TABLET PO SCH (08:52)
[2020-08-07 11:32] VITALS: BP 138/62
[2020-08-07] MEDS: MEROPENEM 1 GM VIAL IVP SCH (11:47)
== END 2020-08-07 14:30 | disposition home health service (06) | DRG 70 ==
LOC: EDH 19:13 → EDHIP 22:00 → 4CH 08-01 01:08
PROVIDERS: ADMIT Family Medicine; ATTEND Family Medicine
PROC: 05HY33Z Insertion of Infusion Device into Upper Vein, Percutaneous Approach (ICD-10-PCS; principal; 2020-07-31)
DX: G93.41 Metabolic encephalopathy (principal); J18.9 Pneumonia, unspecified organism; N39.0 Urinary tract infection, site not specified; Z16.24 Resistance to multiple antibiotics; J44.0 Chronic obstructive pulmonary disease with (acute) lower respiratory infection; I48.91 Unspecified atrial fibrillation; B96.20 Unspecified Escherichia coli [E. coli] as the cause of diseases classified elsewhere; I10 Essential (primary) hypertension; E03.9 Hypothyroidism, unspecified; B96.89 Other specified bacterial agents as the cause of diseases classified elsewhere; Z20.822 Contact with and (suspected) exposure to COVID-19; R53.81 Other malaise; E11.9 Type 2 diabetes mellitus without complications; T85.898A Other specified complication of other internal prosthetic devices, implants and grafts, initial encounter; Y83.8 Other surgical procedures as the cause of abnormal reaction of the patient, or of later complication, without mention of misadventure at the time of the procedure; Y92.238 Other place in hospital as the place of occurrence of the external cause; Z88.5 Allergy status to narcotic agent; Z79.01 Long term (current) use of anticoagulants; Z83.3 Family history of diabetes mellitus; Z82.49 Family history of ischemic heart disease and other diseases of the circulatory system
CPT/HCPCS: 36415; 70450; 71045; 71250; 80048; 80053; 81001; 82550; 83605; 83874; 83880; 84145; 84443; 84484; 85025; 85610; 85730; 86140; 86900; 86901; 87040; 87077; 87088; 87186; 87426; 87804; 93005; C1894; G0378; J0696; J1335; J2185; J2543; J3490; J7030; J7120; U0003

== ENCOUNTER → 2020-10-04 | Outpatient (CLI) | payer MEDICARE ==
[2020-10-04 14:36] LABS: BASOPHILS % (AUTO) 0.3 % (0.0-5.0); EOSINOPHILS % (AUTO) 0.7 % (0.0-8.0); HEMATOCRIT 39.5 % (36-48); LYMPHOCYTES % (AUTO) 19.3 % (21.0-51.0); MEAN CORPUSCULAR HGB CONC 32.7 g/dL (32.0-36.0); MONOCYTES % (AUTO) 4.6 % (3.0-13.0); NEUTROPHILS % (AUTO) 74.8 % (40.0-77.0); PLATELET COUNT (AUTO) 216 K/uL (130-400); RED BLOOD CELL COUNT(AUTO) 4.03 MIL/uL (4.00-5.50); RED CELL DISTRIBUTION WIDTH 13.6 % (11.0-15.5); WHITE BLOOD COUNT (AUTO) 5.8 K/uL (4.8-10.8)
[2020-10-04 14:43] LABS: CREATININE 1.1 mg/dL (0.5-1.5); POTASSIUM 4.2 mmol/L (3.5-5.1)
== END | disposition home or self-care (01) ==
LOC: LAB 14:10
PROVIDERS: ATTEND Urology
DX: N93.0 Postcoital and contact bleeding (principal)
CPT/HCPCS: 36415; 80048; 85025

== ENCOUNTER → 2020-10-05 | Outpatient (CLI) | payer MEDICARE ==
[~2020-10-05] MED LIST changes: +IOHEXOL-350 75 ML VIAL IV ONE
== END | disposition home or self-care (01) ==
LOC: RAH 08:47
PROVIDERS: ATTEND Urology
DX: I51.7 Cardiomegaly (principal); N28.1 Cyst of kidney, acquired; N39.0 Urinary tract infection, site not specified; Z90.49 Acquired absence of other specified parts of digestive tract
CPT/HCPCS: 74178; Q9967

== ENCOUNTER → 2021-04-11 | Outpatient (CLI) | payer MEDICARE ==
[~2021-04-11] MED LIST changes: -IOHEXOL-350 75 ML VIAL IV ONE
== END | disposition home or self-care (01) ==
LOC: SHCH 14:10
PROVIDERS: ATTEND Internal Medicine Cardiovascular Disease
DX: I08.2 Rheumatic disorders of both aortic and tricuspid valves (principal); I48.0 Paroxysmal atrial fibrillation; I11.9 Hypertensive heart disease without heart failure; E66.9 Obesity, unspecified
CPT/HCPCS: 93306; 93356

== ENCOUNTER 2022-07-01 13:47 | Emergency (ER) | payer MEDICARE ==
[~2022-07-01] VITALS: Ht 160 cm; Wt 90.7 kg
[2022-07-01 14:28] LABS: BASOPHILS % (AUTO) 0.3 % (0.0-5.0); EOSINOPHILS % (AUTO) 1.4 % (0.0-8.0); HEMATOCRIT 42.5 % (36-48); LYMPHOCYTES % (AUTO) 18.2 % (21.0-51.0); MEAN CORPUSCULAR HEMOGLOBIN 30.9 pg (27.0-33.0); MEAN CORPUSCULAR HGB CONC 33.4 g/dL (32.0-36.0); MEAN CORPUSCULAR VOLUME 92.6 fL (79-99); MONOCYTES % (AUTO) 5.9 % (3.0-13.0); NEUTROPHILS % (AUTO) 73.7 % (40.0-77.0); PLATELET COUNT (AUTO) 200 K/uL (130-400); RED BLOOD CELL COUNT(AUTO) 4.59 MIL/uL (4.00-5.50); RED CELL DISTRIBUTION WIDTH 12.5 % (11.0-15.5); WHITE BLOOD COUNT (AUTO) 6.4 K/uL (4.8-10.8)
[2022-07-01 14:38] LABS: CREATININE 1.2 mg/dL (0.5-1.5); POTASSIUM 4.6 mmol/L (3.5-5.1)
[2022-07-01 14:43] LABS: ALBUMIN 3.3 g/dL (3.5-5.0); TOTAL PROTEIN, SERUM 6.8 g/dL (6.0-8.3)
[2022-07-01 14:49] LABS: APPEARANCE,URINE CLEAR (CLEAR); BILIRUBIN,URINE NEGATIVE (NEGATIVE); COLOR,URINE LIGHT-YELLOW (YELLOW); GLUCOSE, URINE (UA) NEGATIVE (NEGATIVE); KETONES,URINE NEGATIVE (NEGATIVE); LEUKOCYTE ESTERASE ,URINE 75 Leu/uL (NEGATIVE); NITRATE,URINE NEGATIVE (NEGATIVE); OCCULT BLOOD,URINE NEGATIVE (NEGATIVE); PH,URINE 6.5 (5.0-8.0); PROTEIN,URINE NEGATIVE (NEGATIVE); UROBILINOGEN,URINE 0.2 mg/dL (0.2-1.0)
[2022-07-01 15:03] LABS: BACTERIA,URINE MOD /HPF (None Seen); RBC,URINE 0-1 /HPF (0-1); SQUAMOUS EPITHELIAL CELL,UR RARE /HPF (0-2)
[2022-07-01 15:35] LABS: B-TYPE NATRIURETIC PEPTIDE 176 pg/mL (0-100)
[2022-07-01 17:23] VITALS: BP 178/89
[2022-07-01] MEDS ORDERED: CEPH500B PO (17:53)
== END 2022-07-01 18:30 | disposition home or self-care (01) ==
LOC: EDH 13:47
DX: N39.0 Urinary tract infection, site not specified (principal); I10 Essential (primary) hypertension; E78.00 Pure hypercholesterolemia, unspecified; Z90.710 Acquired absence of both cervix and uterus; Z79.899 Other long term (current) drug therapy; Z88.5 Allergy status to narcotic agent
CPT/HCPCS: 36415; 71045; 74176; 80053; 81001; 83690; 83880; 84484; 85025; 87077; 87088; 87186; 93005

== ENCOUNTER 2022-09-19 20:22 | Emergency (ER) | payer MEDICARE ==
[~2022-09-19] VITALS: Ht 165.1 cm; Wt 90.7 kg
[~2022-09-19 20:22] MED LIST changes: +CEPH500B PO
[2022-09-19 21:32] LABS: BASOPHILS % (AUTO) 0.4 % (0.0-5.0); EOSINOPHILS % (AUTO) 1.6 % (0.0-8.0); HEMATOCRIT 42.3 % (36-48); LYMPHOCYTES % (AUTO) 27.6 % (21.0-51.0); MEAN CORPUSCULAR HEMOGLOBIN 31.2 pg (27.0-33.0); MEAN CORPUSCULAR HGB CONC 33.6 g/dL (32.0-36.0); MONOCYTES % (AUTO) 6.9 % (3.0-13.0); NEUTROPHILS % (AUTO) 63.2 % (40.0-77.0); PLATELET COUNT (AUTO) 197 K/uL (130-400); RED BLOOD CELL COUNT(AUTO) 4.55 MIL/uL (4.00-5.50); WHITE BLOOD COUNT (AUTO) 7.4 K/uL (4.8-10.8)
[2022-09-19 21:45] LABS: APPEARANCE,URINE CLEAR (CLEAR); BILIRUBIN,URINE NEGATIVE (NEGATIVE); COLOR,URINE COLORLESS (YELLOW); GLUCOSE, URINE (UA) NEGATIVE (NEGATIVE); KETONES,URINE NEGATIVE (NEGATIVE); LEUKOCYTE ESTERASE ,URINE NEGATIVE Leu/uL (NEGATIVE); NITRATE,URINE NEGATIVE (NEGATIVE); OCCULT BLOOD,URINE NEGATIVE (NEGATIVE); PROTEIN,URINE NEGATIVE (NEGATIVE); UROBILINOGEN,URINE 0.2 mg/dL (0.2-1.0)
[2022-09-19 22:00] LABS: ALBUMIN 3.5 g/dL (3.5-5.0); CREATININE 1.1 mg/dL (0.5-1.5); POTASSIUM 4.6 mmol/L (3.5-5.1); TOTAL PROTEIN, SERUM 7.2 g/dL (6.0-8.3)
[2022-09-19] MEDS ORDERED: MAG/ALUM/SIMETH 30 ML UDCUP PO ONE (22:00)
[2022-09-19] MEDS ORDERED: LIDOCAINE HCL 2% VISCOUS 15 ML UDCUP PO ONE (22:00)
[2022-09-19] MEDS ORDERED: PANTOPRAZOLE 40 MG/VIAL IVP ONE (22:00)
[2022-09-20] MEDS ORDERED: FAMO-136 PO (01:02)
[2022-09-20] MEDS ORDERED: CARAL PO (01:02)
[2022-09-20 01:21] VITALS: BP 137/82
== END 2022-09-20 01:23 | disposition home or self-care (01) ==
LOC: EDH 20:22
DX: R10.13 Epigastric pain (principal); I48.91 Unspecified atrial fibrillation; E78.00 Pure hypercholesterolemia, unspecified; I10 Essential (primary) hypertension; Z79.01 Long term (current) use of anticoagulants; Z88.5 Allergy status to narcotic agent; Z90.710 Acquired absence of both cervix and uterus
CPT/HCPCS: 99285; 96374; 71045; 82550; 83735; 84484; 80053; 83690; 85025; 87040 ×2; 83605; 81003; 36415; 93005; 84145; C9113

== ENCOUNTER 2023-09-30 12:55 | Emergency (ER) | payer MEDICARE ==
[~2023-09-30] VITALS: Ht 165.1 cm; Wt 95.3 kg
[~2023-09-30 12:55] MED LIST changes: +CARAL PO; +FAMO-136 PO
[2023-09-30 13:14] LABS: BASOPHILS # (AUTO) 0.03 K/uL (0.00-0.20); BASOPHILS % (AUTO) 0.5 % (0.0-5.0); EOSINOPHILS # (AUTO) 0.09 K/uL (0.00-0.70); EOSINOPHILS % (AUTO) 1.4 % (0.0-8.0); HEMATOCRIT 39.1 % (36-48); IMMATURE GRANULOCYTE ABSOLUTE 0.03 K/uL (0-1); LYMPHOCYTES # (AUTO) 1.1 K/uL (1.0-4.8); LYMPHOCYTES % (AUTO) 17.7 % (21.0-51.0); MEAN CORPUSCULAR HGB CONC 34.3 g/dL (32.0-36.0); MEAN CORPUSCULAR VOLUME 93.3 fL (79-99); MONOCYTES # (AUTO) 0.4 K/uL (0.1-1.0); NEUTROPHILS # (AUTO) 4.8 K/uL (1.8-7.7); NEUTROPHILS % (AUTO) 73.9 % (40.0-77.0); PLATELET COUNT (AUTO) 215 K/uL (130-400); RED BLOOD CELL COUNT(AUTO) 4.19 MIL/uL (4.00-5.50); RED CELL DISTRIBUTION WIDTH 12.4 % (11.0-15.5); WHITE BLOOD COUNT (AUTO) 6.5 K/uL (4.8-10.8)
[2023-09-30 13:35] LABS: CREATININE 1.3 mg/dL (0.5-1.0); POTASSIUM 4.4 mmol/L (3.5-5.1)
[2023-09-30 13:39] LABS: ALBUMIN 3.3 g/dL (3.5-5.0); BILIRUBIN,TOTAL 0.7 mg/dL (0.2-1.0); MAGNESIUM 1.7 mg/dL (1.80-2.40); TOTAL PROTEIN, SERUM 6.9 g/dL (6.0-8.3)
[2023-09-30 14:37] LABS: APPEARANCE,URINE CLEAR (CLEAR); BILIRUBIN,URINE NEGATIVE (NEGATIVE); COLOR,URINE COLORLESS (YELLOW); GLUCOSE, URINE (UA) NEGATIVE (NEGATIVE); KETONES,URINE NEGATIVE (NEGATIVE); LEUKOCYTE ESTERASE ,URINE NEGATIVE Leu/uL (NEGATIVE); NITRATE,URINE NEGATIVE (NEGATIVE); OCCULT BLOOD,URINE NEGATIVE (NEGATIVE); PH,URINE 5.5 (5.0-8.0); PROTEIN,URINE NEGATIVE (NEGATIVE); UROBILINOGEN,URINE 0.2 mg/dL (0.2-1.0)
[2023-09-30 14:38] LABS: ADD UA MICROSCOPIC NO
[2023-09-30 18:00] VITALS: BP 169/88; PULSE 60; RESP 14; O2SAT 99
[2023-09-30] MEDS: LIDOCAINE HCL 2% VISCOUS 15 ML UDCUP ONE (18:01)
[2023-09-30] MEDS: DICYCLOMINE HCL 10 MG/5 ML ML PO ONE ×2 (18:01→18:02)
[2023-09-30] MEDS: MAG/ALUM/SIMETH 30 ML UDCUP ONE (18:01)
[2023-09-30] MEDS: LIDOCAINE HCL 2% VISCOUS 15 ML UDCUP PO ONE (18:02)
[2023-09-30] MEDS: MAG/ALUM/SIMETH 30 ML UDCUP PO ONE (18:02)
== END 2023-09-30 18:06 | disposition home or self-care (01) ==
LOC: EDH 12:55
DX: R07.89 Other chest pain (principal); R10.13 Epigastric pain; I10 Essential (primary) hypertension; E78.00 Pure hypercholesterolemia, unspecified; I48.91 Unspecified atrial fibrillation; Z88.5 Allergy status to narcotic agent; Z79.899 Other long term (current) drug therapy
CPT/HCPCS: 36415; 71045; 80053; 81003; 83735; 84484; 85025; 93005

== ENCOUNTER 2023-10-22 08:38 | Emergency (ER) | payer MEDICARE ==
[~2023-10-22] VITALS: Ht 165.1 cm; Wt 99.8 kg
[2023-10-22 09:20] LABS: BASOPHILS # (AUTO) 0.03 K/uL (0.00-0.20); BASOPHILS % (AUTO) 0.5 % (0.0-5.0); EOSINOPHILS # (AUTO) 0.11 K/uL (0.00-0.70); EOSINOPHILS % (AUTO) 1.7 % (0.0-8.0); HEMATOCRIT 39.9 % (36-48); IMMATURE GRANULOCYTE ABSOLUTE 0.03 K/uL (0-1); LYMPHOCYTES # (AUTO) 1.5 K/uL (1.0-4.8); LYMPHOCYTES % (AUTO) 22.7 % (21.0-51.0); MEAN CORPUSCULAR HEMOGLOBIN 31.8 pg (27.0-33.0); MEAN CORPUSCULAR HGB CONC 32.8 g/dL (32.0-36.0); MEAN CORPUSCULAR VOLUME 96.8 fL (79-99); MONOCYTES # (AUTO) 0.5 K/uL (0.1-1.0); MONOCYTES % (AUTO) 7.2 % (3.0-13.0); NEUTROPHILS # (AUTO) 4.4 K/uL (1.8-7.7); NEUTROPHILS % (AUTO) 67.4 % (40.0-77.0); PLATELET COUNT (AUTO) 187 K/uL (130-400); RED BLOOD CELL COUNT(AUTO) 4.12 MIL/uL (4.00-5.50); RED CELL DISTRIBUTION WIDTH 12.6 % (11.0-15.5); WHITE BLOOD COUNT (AUTO) 6.5 K/uL (4.8-10.8)
[2023-10-22] MEDS: LACTATED RINGERS 1000ML 1,000 ML IV ONE (09:29)
[2023-10-22] MEDS: PANTOPRAZOLE 40 MG/VIAL IVP ONE (09:29)
[2023-10-22] MEDS: ONDANSETRON 4MG INJ IVP ONE (09:29)
[2023-10-22 09:51] LABS: CREATININE 1.2 mg/dL (0.5-1.0)
[2023-10-22 09:58] LABS: APPEARANCE,URINE CLEAR (CLEAR); BILIRUBIN,URINE NEGATIVE (NEGATIVE); COLOR,URINE LIGHT-YELLOW (YELLOW); GLUCOSE, URINE (UA) NEGATIVE (NEGATIVE); KETONES,URINE NEGATIVE (NEGATIVE); LEUKOCYTE ESTERASE ,URINE NEGATIVE Leu/uL (NEGATIVE); NITRATE,URINE NEGATIVE (NEGATIVE); OCCULT BLOOD,URINE NEGATIVE (NEGATIVE); PH,URINE 5.5 (5.0-8.0); PROTEIN,URINE NEGATIVE (NEGATIVE); UROBILINOGEN,URINE 0.2 mg/dL (0.2-1.0)
[2023-10-22 10:04] LABS: ADD UA MICROSCOPIC NO
[2023-10-22 10:52] LABS: POTASSIUM 4.8 mmol/L (3.5-5.1)
[2023-10-22 12:22] VITALS: BP 145/72; PULSE 68; RESP 20; O2SAT 99
== END 2023-10-22 12:24 | disposition home or self-care (01) ==
LOC: EDH 08:38
DX: E86.0 Dehydration (principal); I48.91 Unspecified atrial fibrillation; E78.00 Pure hypercholesterolemia, unspecified; I10 Essential (primary) hypertension; Z79.01 Long term (current) use of anticoagulants; Z88.5 Allergy status to narcotic agent; Z90.710 Acquired absence of both cervix and uterus
CPT/HCPCS: 99285; 96374; 96361; 71045; 96375; 82550; 84484; 80048; 83690; 85025; 81003; 36415; 93005; J7120; J2405; C9113

== ENCOUNTER 2023-11-19 14:32 | Emergency (ER) | payer MEDICARE ==
[~2023-11-19] VITALS: Ht 165.1 cm; Wt 83.0 kg
[2023-11-19 15:11] LABS: BASOPHILS # (AUTO) 0.03 K/uL (0.00-0.20); BASOPHILS % (AUTO) 0.4 % (0.0-5.0); EOSINOPHILS # (AUTO) 0.05 K/uL (0.00-0.70); EOSINOPHILS % (AUTO) 0.7 % (0.0-8.0); HEMATOCRIT 40.9 % (36-48); IMMATURE GRANULOCYTE ABSOLUTE 0.02 K/uL (0-1); LYMPHOCYTES # (AUTO) 1.1 K/uL (1.0-4.8); LYMPHOCYTES % (AUTO) 16.2 % (21.0-51.0); MEAN CORPUSCULAR HEMOGLOBIN 31.5 pg (27.0-33.0); MEAN CORPUSCULAR HGB CONC 32.8 g/dL (32.0-36.0); MEAN CORPUSCULAR VOLUME 96.2 fL (79-99); MONOCYTES # (AUTO) 0.4 K/uL (0.1-1.0); MONOCYTES % (AUTO) 5.8 % (3.0-13.0); NEUTROPHILS # (AUTO) 5.2 K/uL (1.8-7.7); NEUTROPHILS % (AUTO) 76.6 % (40.0-77.0); PLATELET COUNT (AUTO) 196 K/uL (130-400); RED BLOOD CELL COUNT(AUTO) 4.25 MIL/uL (4.00-5.50); RED CELL DISTRIBUTION WIDTH 12.6 % (11.0-15.5); WHITE BLOOD COUNT (AUTO) 6.7 K/uL (4.8-10.8)
[2023-11-19 15:25] LABS: CREATININE 1.5 mg/dL (0.5-1.0); POTASSIUM 5.1 mmol/L (3.5-5.1)
[2023-11-19 15:29] LABS: ALBUMIN 3.6 g/dL (3.5-5.0); BILIRUBIN,TOTAL 0.3 mg/dL (0.2-1.0); TOTAL PROTEIN, SERUM 7.4 g/dL (6.0-8.3)
[2023-11-19] MEDS ORDERED: PANT40TA55 PO (16:47)
[2023-11-19 18:22] VITALS: BP 164/87; PULSE 67; RESP 16; O2SAT 97
== END 2023-11-19 18:25 | disposition home or self-care (01) ==
LOC: EDH 14:32
DX: K21.9 Gastro-esophageal reflux disease without esophagitis (principal); I48.91 Unspecified atrial fibrillation; E78.00 Pure hypercholesterolemia, unspecified; I10 Essential (primary) hypertension; Z79.01 Long term (current) use of anticoagulants; Z88.5 Allergy status to narcotic agent; Z90.710 Acquired absence of both cervix and uterus
CPT/HCPCS: 36415; 71045; 80053; 83690; 85025; 93005

== ENCOUNTER 2023-12-13 13:47 | Emergency (ER) | payer MEDICARE ==
[~2023-12-13] VITALS: Ht 165.1 cm; Wt 90.7 kg
[~2023-12-13 13:47] MED LIST changes: +PANT40TA55 PO
[2023-12-13 14:53] LABS: BASOPHILS # (AUTO) 0.02 K/uL (0.00-0.20); BASOPHILS % (AUTO) 0.3 % (0.0-5.0); EOSINOPHILS # (AUTO) 0.08 K/uL (0.00-0.70); EOSINOPHILS % (AUTO) 1.2 % (0.0-8.0); HEMATOCRIT 38.5 % (36-48); IMMATURE GRANULOCYTE ABSOLUTE 0.03 K/uL (0-1); LYMPHOCYTES % (AUTO) 14.9 % (21.0-51.0); MEAN CORPUSCULAR HEMOGLOBIN 31.3 pg (27.0-33.0); MEAN CORPUSCULAR VOLUME 94.8 fL (79-99); MONOCYTES # (AUTO) 0.4 K/uL (0.1-1.0); MONOCYTES % (AUTO) 5.8 % (3.0-13.0); NEUTROPHILS % (AUTO) 77.3 % (40.0-77.0); PLATELET COUNT (AUTO) 184 K/uL (130-400); RED BLOOD CELL COUNT(AUTO) 4.06 MIL/uL (4.00-5.50); RED CELL DISTRIBUTION WIDTH 12.7 % (11.0-15.5); WHITE BLOOD COUNT (AUTO) 6.5 K/uL (4.8-10.8)
[2023-12-13] MEDS: PANTOPRAZOLE 40 MG/VIAL IVP ONE (14:55)
[2023-12-13] MEDS ORDERED: PHARMACY COMMUNICATION MISC SCH (15:00)
[2023-12-13 15:04] LABS: CREATININE 1.3 mg/dL (0.5-1.0); POTASSIUM 5.1 mmol/L (3.5-5.1)
[2023-12-13 15:09] LABS: ALBUMIN 3.2 g/dL (3.5-5.0); BILIRUBIN,TOTAL 0.2 mg/dL (0.2-1.0); TOTAL PROTEIN, SERUM 6.8 g/dL (6.0-8.3)
[2023-12-13] MEDS: LIDO 2% VISC 30ML+MAG/AL/SIMETH 30ML+DICYCLOMINE 20MG 10ML PO PRN (15:19)
[2023-12-13] MEDS: COMPOUND PO MISCELLANEOUS 1 EACH MISC MISC PRN (15:20)
[2023-12-13 15:29] LABS: APPEARANCE,URINE CLEAR (CLEAR); BILIRUBIN,URINE NEGATIVE (NEGATIVE); COLOR,URINE COLORLESS (YELLOW); GLUCOSE, URINE (UA) NEGATIVE (NEGATIVE); KETONES,URINE NEGATIVE (NEGATIVE); LEUKOCYTE ESTERASE ,URINE NEGATIVE Leu/uL (NEGATIVE); NITRATE,URINE NEGATIVE (NEGATIVE); OCCULT BLOOD,URINE NEGATIVE (NEGATIVE); PH,URINE 6.5 (5.0-8.0); PROTEIN,URINE NEGATIVE (NEGATIVE); UROBILINOGEN,URINE 0.2 mg/dL (0.2-1.0)
[2023-12-13 15:32] LABS: ADD UA MICROSCOPIC YES
[2023-12-13 15:33] LABS: BACTERIA,URINE RARE /HPF (None Seen); MUCUS,URINE RARE LPF (None Seen); SQUAMOUS EPITHELIAL CELL,UR RARE /HPF (0-2); WBC,URINE 0-1 /HPF (0-1)
[2023-12-13 16:32] VITALS: BP 143/59; PULSE 60; RESP 16; O2SAT 99
== END 2023-12-13 16:42 | disposition home or self-care (01) ==
LOC: EDH 13:47
DX: K21.9 Gastro-esophageal reflux disease without esophagitis (principal); E03.9 Hypothyroidism, unspecified; E66.01 Morbid (severe) obesity due to excess calories; E78.00 Pure hypercholesterolemia, unspecified; I10 Essential (primary) hypertension; I48.91 Unspecified atrial fibrillation; Z79.899 Other long term (current) drug therapy; Z88.5 Allergy status to narcotic agent; Z90.710 Acquired absence of both cervix and uterus
CPT/HCPCS: 99285; 80053; 85025; 81001; 36415; 71045; 96374; 93005; J2470

== ENCOUNTER 2024-01-20 10:23 | Inpatient (IN) | payer MEDICARE ==
[~2024-01-20] VITALS: Ht 165.1 cm; Wt 92.8 kg
[2024-01-20 11:52] LABS: BASOPHILS # (AUTO) 0.03 K/uL (0.00-0.20); BASOPHILS % (AUTO) 0.4 % (0.0-5.0); EOSINOPHILS # (AUTO) 0.09 K/uL (0.00-0.70); EOSINOPHILS % (AUTO) 1.3 % (0.0-8.0); HEMATOCRIT 39.5 % (36-48); IMMATURE GRANULOCYTE ABSOLUTE 0.03 K/uL (0-1); LYMPHOCYTES # (AUTO) 1.2 K/uL (1.0-4.8); LYMPHOCYTES % (AUTO) 17.4 % (21.0-51.0); MEAN CORPUSCULAR HEMOGLOBIN 31.3 pg (27.0-33.0); MEAN CORPUSCULAR HGB CONC 33.4 g/dL (32.0-36.0); MEAN CORPUSCULAR VOLUME 93.6 fL (79-99); MONOCYTES # (AUTO) 0.5 K/uL (0.1-1.0); NEUTROPHILS # (AUTO) 5.2 K/uL (1.8-7.7); NEUTROPHILS % (AUTO) 73.5 % (40.0-77.0); PLATELET COUNT (AUTO) 199 K/uL (130-400); RED BLOOD CELL COUNT(AUTO) 4.22 MIL/uL (4.00-5.50); RED CELL DISTRIBUTION WIDTH 12.7 % (11.0-15.5)
[2024-01-20 12:04] LABS: CREATININE 1.5 mg/dL (0.5-1.0); MAGNESIUM 1.8 mg/dL (1.80-2.40); POTASSIUM 4.4 mmol/L (3.5-5.1)
[2024-01-20 12:29] LABS: PARTIAL THROMBOPLASTIN TIME 51.7 SEC (26.3-35.5)
[2024-01-20 12:49] LABS: INR 1.53 (0.85-1.15)
[2024-01-20] MEDS: 0.9% NACL 500ML IV.SOLN 500 ML IV ONE (13:00)
[2024-01-20] MEDS ORDERED: KCL 20 MEQ ERTAB PO PRN (14:30)
[2024-01-20] MEDS ORDERED: POTASSIUM CHLORIDE 10% ELIXIR 20 MEQ/15 ML UDCUP PO PRN (14:30)
[2024-01-20] MEDS ORDERED: MAGNESIUM 2GM PREMIX 50ML 50 ML IV PRN (14:30)
[2024-01-20] MEDS ORDERED: POTASSIUM CHLORIDE 20MEQ/100ML 100 ML IV PRN (14:30)
[2024-01-20] MEDS ORDERED: acetaMINOPHEN 500 MG TABLET PO PRN (14:30)
[2024-01-20 15:03] LABS: HEMOGLOBIN A1C 5.6 % (4.0-6.0)
[2024-01-20 15:20] LABS: THYROID STIMULATING HORMONE 14.11 uIU/mL (0.36-3.74)
[2024-01-20] MEDS: PANTOPRAZOLE 40 MG/VIAL IVP ONE (15:52)
[2024-01-20 19:22] LABS: APPEARANCE,URINE CLEAR (CLEAR); BILIRUBIN,URINE NEGATIVE (NEGATIVE); COLOR,URINE COLORLESS (YELLOW); GLUCOSE, URINE (UA) NEGATIVE (NEGATIVE); KETONES,URINE NEGATIVE (NEGATIVE); LEUKOCYTE ESTERASE ,URINE NEGATIVE Leu/uL (NEGATIVE); NITRATE,URINE NEGATIVE (NEGATIVE); OCCULT BLOOD,URINE NEGATIVE (NEGATIVE); PH,URINE 6.5 (5.0-8.0); PROTEIN,URINE NEGATIVE (NEGATIVE); UROBILINOGEN,URINE 0.2 mg/dL (0.2-1.0)
[2024-01-20 19:23] LABS: ADD UA MICROSCOPIC YES
[2024-01-20 19:25] LABS: RBC,URINE 0-1 /HPF (0-1); SQUAMOUS EPITHELIAL CELL,UR RARE /HPF (0-2); WBC,URINE 0-1 /HPF (0-1)
[2024-01-20 19:33] VITALS: BP 133/80; PULSE 55; RESP 18; TEMP 98.4
[2024-01-20] MEDS ORDERED: CARV12.511 PO (20:20)
[2024-01-20] MEDS ORDERED: PANT40TA54 PO (20:20)
[2024-01-20] MEDS ORDERED: SUCR1TAB PO (20:20)
[2024-01-20] MEDS ORDERED: LOSA1TAB37 PO (20:20)
[2024-01-20] MEDS ORDERED: MACR100 PO (20:20)
[2024-01-20] MEDS ORDERED: FAMOTIDINE 20MG VIAL IV SCH (21:00)
[2024-01-20] MEDS: LoSARTan 25 MG TABLET PO SCH (22:00)
[2024-01-20 23:42] VITALS: BP 148/77; PULSE 55; RESP 16; TEMP 97.8
[2024-01-21] VITALS (10 sets, daily range): BP systolic 119–143; BP diastolic 63–85; PULSE 45–70; RESP 16–20; TEMP 97.9–98.6; O2SAT 98–99
[2024-01-21] MEDS: levoTHYROxine 100 MCG TABLET PO SCH (06:44)
[2024-01-21 08:41] LABS: BASOPHILS # (AUTO) 0.03 K/uL (0.00-0.20); BASOPHILS % (AUTO) 0.5 % (0.0-5.0); EOSINOPHILS # (AUTO) 0.09 K/uL (0.00-0.70); EOSINOPHILS % (AUTO) 1.4 % (0.0-8.0); HEMATOCRIT 40.6 % (36-48); IMMATURE GRANULOCYTE ABSOLUTE 0.02 K/uL (0-1); LYMPHOCYTES # (AUTO) 1.2 K/uL (1.0-4.8); MEAN CORPUSCULAR HGB CONC 33.3 g/dL (32.0-36.0); MEAN CORPUSCULAR VOLUME 96.2 fL (79-99); MONOCYTES # (AUTO) 0.5 K/uL (0.1-1.0); MONOCYTES % (AUTO) 7.1 % (3.0-13.0); NEUTROPHILS # (AUTO) 4.8 K/uL (1.8-7.7); NEUTROPHILS % (AUTO) 72.7 % (40.0-77.0); PLATELET COUNT (AUTO) 198 K/uL (130-400); RED BLOOD CELL COUNT(AUTO) 4.22 MIL/uL (4.00-5.50); RED CELL DISTRIBUTION WIDTH 12.8 % (11.0-15.5); WHITE BLOOD COUNT (AUTO) 6.7 K/uL (4.8-10.8)
[2024-01-21 08:49] LABS: INR 1.06 (0.85-1.15); PROTHROMBIN TIME 11.4 SEC (9.6-11.6)
[2024-01-21 08:50] LABS: PARTIAL THROMBOPLASTIN TIME 34.7 SEC (26.3-35.5)
[2024-01-21] MEDS ORDERED: RIVAROXABAN 20 MG TABLET PO SCH (09:00)
[2024-01-21 09:02] LABS: CREATININE 1.4 mg/dL (0.5-1.0); POTASSIUM 4.1 mmol/L (3.5-5.1); T4 (THYROXINE) 9.2 ug/dL (4.7-13.3); THYROID STIMULATING HORMONE 13.53 uIU/mL (0.36-3.74)
[2024-01-21] MEDS: SUCRALFATE 1 GM TABLET PO SCH (09:44)
[2024-01-21] MEDS: PANTOPRAZOLE 40 MG/VIAL IVP SCH (09:44)
[2024-01-21] MEDS: HEParin 5,000 UNIT VIAL IV ONE (10:11)
[2024-01-21] MEDS: HEParin 5,000 UNIT VIAL ONE (10:14)
[2024-01-21] MEDS: HEParin 25,000 UNITS/250ML D5W 250 ML IV SCH (10:14)
[2024-01-22 03:05] VITALS: BP 140/89; PULSE 58; RESP 18; TEMP 97.8
[2024-01-22 04:05] VITALS: BP 140/89; PULSE 58; RESP 18; TEMP 97.8
[2024-01-22 07:00] VITALS: BP 155/93; PULSE 62; RESP 18; TEMP 97.9; O2SAT 99
[2024-01-22] MEDS: RIVAROXABAN 15 MG TABLET PO SCH (10:04)
[2024-01-22 11:00] VITALS: BP 123/57; PULSE 58; RESP 20; TEMP 98.6
[2024-01-23] MEDS ORDERED: PANTOPRAZOLE 40 MG TAB DR PO SCH (09:00)
== END 2024-01-22 17:21 | disposition home or self-care (01) | DRG 309 ==
LOC: EDH 10:23 → EDHIP 14:28 → 2AH 19:26
PROVIDERS: ADMIT Internal Medicine; ATTEND Internal Medicine
DX: I48.19 Other persistent atrial fibrillation (principal); E87.1 Hypo-osmolality and hyponatremia; I50.22 Chronic systolic (congestive) heart failure; N39.0 Urinary tract infection, site not specified; I13.0 Hypertensive heart and chronic kidney disease with heart failure and stage 1 through stage 4 chronic kidney disease, or unspecified chronic kidney disease; I38 Endocarditis, valve unspecified; I95.1 Orthostatic hypotension; M62.838 Other muscle spasm; N18.9 Chronic kidney disease, unspecified; E78.5 Hyperlipidemia, unspecified; E03.9 Hypothyroidism, unspecified; I42.8 Other cardiomyopathies; E66.01 Morbid (severe) obesity due to excess calories; R00.1 Bradycardia, unspecified; K21.9 Gastro-esophageal reflux disease without esophagitis; Z79.01 Long term (current) use of anticoagulants; Z86.73 Personal history of transient ischemic attack (TIA), and cerebral infarction without residual deficits; Z90.710 Acquired absence of both cervix and uterus; Z68.34 Body mass index [BMI] 34.0-34.9, adult
CPT/HCPCS: 36415; 71045; 80048; 81001; 82948; 83036; 83735; 83880; 84145; 84436; 84443; 84481; 84484; 85025; 85610; 85730; 86140; 93005; 93306; 96374; G0378; J1644; J2470; J7040

== ENCOUNTER → 2024-02-25 | Outpatient (CLI) | payer MEDICARE ==
[~2024-02-25] MED LIST changes: -CARAL PO; -CEPH500B PO; -FAMO-136 PO; -FAMO20TA8 PO; +LOSA1TAB37 PO; +MACR100 PO; +PANT40TA54 PO; +SUCR1TAB PO
[2024-02-25 16:54] LABS: CREATININE 1.6 mg/dL (0.5-1.0)
== END | disposition home or self-care (01) ==
LOC: LAB 13:01
PROVIDERS: ATTEND Internal Medicine Cardiovascular Disease
DX: R00.1 Bradycardia, unspecified (principal); I50.22 Chronic systolic (congestive) heart failure; I48.19 Other persistent atrial fibrillation
CPT/HCPCS: 36415; 80048; 83880

== ENCOUNTER → 2024-07-21 | Outpatient (CLI) | payer MEDICARE ==
[2024-07-21 16:42] LABS: CREATININE 1.5 mg/dL (0.5-1.0); POTASSIUM 5.2 mmol/L (3.5-5.1)
== END | disposition home or self-care (01) ==
LOC: LAB 15:47
PROVIDERS: ATTEND Internal Medicine Cardiovascular Disease
DX: I13.0 Hypertensive heart and chronic kidney disease with heart failure and stage 1 through stage 4 chronic kidney disease, or unspecified chronic kidney disease (principal); I50.22 Chronic systolic (congestive) heart failure; N18.9 Chronic kidney disease, unspecified; I48.19 Other persistent atrial fibrillation; R00.1 Bradycardia, unspecified
CPT/HCPCS: 36415; 80048; 83880